=== PATIENT | male | born 1940 | race Caucasian/White ===

== ENCOUNTER → 2016-12-21 | Outpatient (CLI) | payer MEDICARE ==
[2016-12-21 08:23] LABS: CH 30.4; CHCM 33.3; HCT 43.8 % (39.0-53.0); HDW 2.25; HGB 14.5 gm/dL (13.0-17.5); MCH 30.4 pg (25.0-35.0); MCHC 33.2 g/dL (31.0-37.0); MCV 91.7 fL (80.0-100.0); Mean Platelet Volume 7.4; RBC 4.77 m/uL (4.30-5.90); RDW 13.6 % (11.5-15.5); WBC 5.3 k/uL (3.8-10.6)
[2016-12-21 08:41] LABS: AST 29 U/L (17-59); Anion Gap 13 mmol/L; Blood Urea Nitrogen 29 mg/dL (9-20); Carbon Dioxide 25 mmol/L (22-30); Chloride 102 mmol/L (98-107); Cholesterol 130 mg/dL (<200); Glucose 108 mg/dL (74-99); HDL Cholesterol 35 mg/dL (40-60); Non-African American GFR(MDRD) >60 (>60 ml/min/1.73 sqM); Potassium 4.3 mmol/L (3.5-5.1); Sodium 140 mmol/L (137-145); Triglycerides 74 mg/dL (<150)
[2016-12-21 13:05] LABS: Hemoglobin A1C 5.9 % (4.2-6.1)
== END | disposition home or self-care (01) ==
LOC: LABWHC1 07:56
PROVIDERS: ATTEND Internal Medicine
DX: E78.00 Pure hypercholesterolemia, unspecified (principal); E11.9 Type 2 diabetes mellitus without complications; I10 Essential (primary) hypertension
CPT/HCPCS: 36415; 80051; 80061; 82565; 82947; 83036; 84450; 84520; 85027

== ENCOUNTER → 2017-01-15 | Outpatient (CLI) | payer MEDICARE ==
[2017-01-15 16:18] LABS: Blood Urea Nitrogen 25 mg/dL (9-20); Non-African American GFR(MDRD) >60 (>60 ml/min/1.73 sqM)
--- NOTE | 2017-01-18 08:14 | CT ---
EXAMINATION TYPE: CT neck chest w con DATE OF EXAM: 01/15/2017 COMPARISON: CT neck December 04, 2014. CT chest December 15, 2011. PET CT April 16, 2012. HISTORY: History of skin cancer and hairy cell leukemia. CT DLP: 1102.00 mGycm. Automated Exposure Control for Dose Reduction was Utilized. TECHNIQUE: CT scan of the neck and thorax are performed following with IV Contrast, patient injected with 100 mL of Omnipaque 300. FINDINGS: NECK: Airway: There is heterogeneous multinodular thyroid redemonstrated, there appears to be interval more numerous and prominent nodules, for reference 1 cm nodule is seen on coronal image 57. Further inves tigation with ultrasound correlation is advised. Majority of left thyroid is surgically absent simila r prior. Parotid/submandibular glands: Left-sided carotid and submandibular glands are surgically absent. Carotid/Vascular Structures: Surrounding soft tissue along course of the left common carotid artery i ncluding bulb and proximal internal carotid artery likely reflects product of treatment change. Osseous Structures: There is prominent multilevel spurring in the cervical thoracic spine. Multilevel moderate disc space narrowing is seen most prominent C5-C6 and T2-T3 levels. Other: Majority of left neck is surgically resected as detailed above including left-sided muscles fr om parotid level posterior to the mandible down to the level of thyroid. No new suspicious greater than 1 cm lymph nodes are seen. CHEST: LUNGS: Left apical scarring is redemonstrated at site of surgical suture. There is additional more pa tchy scarring in the right middle lobe near diaphragm. There is elevated right hemidiaphragm redemons trated. No suspicious nodules or masses are present. No pleural effusion or pneumothorax is seen. Tra cheobronchial tree is patent. MEDIASTINUM: There are no greater than 1 cm hilar or mediastinal lymph nodes. No cardiomegaly or pe ricardial effusion is seen. Coronary artery calcification is present. OTHER: Cholecystectomy clips are seen. Multilevel spurring in the spine is present. IMPRESSION: Long segment postsurgical changes left neck with smaller changes left lung apex. No recur rent mass or adenopathy is seen to suggest neoplastic recurrence.
== END | disposition home or self-care (01) ==
LOC: RADCTMAIN 15:36
PROVIDERS: ATTEND Internal Medicine Hematology & Oncology
DX: C91.40 Hairy cell leukemia not having achieved remission (principal); Z88.5 Allergy status to narcotic agent; Z98.890 Other specified postprocedural states
CPT/HCPCS: 82565; 84520; 70491; 71260; 36415; Q9967

== ENCOUNTER → 2018-02-02 | Outpatient (CLI) | payer MEDICARE ==
--- NOTE | 2018-02-08 19:39 | HM ---
HOLTER MONITOR REPORT INDICATION: Chest discomfort. REFERRING PHYSICIAN: Dr. Phan. CLINICAL INFORMATION: The patient was monitored for 24 hours. The baseline rhythm appeared to be a sinus mechanism with a minimum heart rate of 51 beats per minute, max heart rate 112 beats per minute and average heart rate of 68 beats per minute. Ventricular ectopic events were represented in less than 1% of the total beats count and presented as PVC, bigeminy, triplet and couplet as well. Supraventricular ectopic events were present in less than 1% of the total beats count and presented as couplets and triplets as well as PACs. The patient did have multiple episodes of paroxysmal atrial tachycardia noted. No evidence of any sinus pause or sinus arrest. No evidence of any advanced AV block seen. The patient reported symptoms of fluttering in the chest and the symptoms were associated with normal sinus mechanism as well as with PVCs. CONCLUSION: 1. Sinus rhythm as a baseline mechanism. 2. Prior ventricular ectopic events. 3. Rare supraventricular ectopic events. 4. The patient did have multiple episodes of paroxysmal atrial tachycardia noted. 5. No evidence of any sinus pause or sinus arrest. 6. There is no evidence of any advanced atrioventricular block. 7. The patient reports symptoms of palpitations in the chest and fluttering in the chest and the symptoms were associated with normal sinus mechanism and premature ventricular contraction. MMODL / IJN: [id number] /
== END | disposition home or self-care (01) ==
LOC: RADECHMAIN 12:03
PROVIDERS: ATTEND Internal Medicine
DX: I49.3 Ventricular premature depolarization (principal); I47.1 Supraventricular tachycardia
CPT/HCPCS: 93225; 93226

== ENCOUNTER 2018-02-14 09:14 | Day surgery (SDC) | payer MEDICARE ==
[2018-02-09 14:55] VITALS: BMI 54.9
[~2018-02-14 09:14] MED LIST: LACTATED RINGERS 1,000 ML IV SCH; LIDOCAINE 1% 20 ML VIAL (10MG/ML) FOR IV START INTRADERMA PRN
[2018-02-14 09:55] VITALS: TEMP 98.6
[2018-02-14 10:00] LABS: Glucose,Whole Blood 88 mg/dL (75-99)
[2018-02-14] MEDS ORDERED: LIDOCAINE 1% INJ 10MG/ML (20 ML MDV) ONE ×2 (10:10→10:40)
[2018-02-14] MEDS ORDERED: PROPOFOL 10 MG/ML 20 ML VIAL IV ONE ×2 (10:10→10:40)
--- NOTE | 2018-02-14 11:09 | P.PCN ---
Date of Procedure: 02/14/18 Procedure(s) Performed: Procedure: Total colonoscopy. Preoperative diagnosis: Screening for neoplasia. Postoperative diagnosis: Sigmoid diverticulosis with no evidence of acute diverticulitis, strictures, polyps or cancer. Preparation: HalfLytely prep. Sedation: Was provided by anesthesia. Brief clinical history: The patient is a 77-year-old male who is scheduled for this evaluation for screening for neoplasia. The patient had a prior exam more than 5 years ago and he indicated history of polyps. He has no abdominal complaints, bleeding or anemia. Procedure: With the patient on his left lateral decubitus position and after informed consent and adequate sedation, the perianal area was inspected and it did not show any fissures or fistulas. There were no masses felt on digital rectal examination. The Olympus CFQ 160L video colonoscope was then inserted in the rectum in the usual fashion and advanced to the cecum. There were multiple diverticular orifices seen scattered in the sigmoid but I saw no evidence of acute diverticulitis or strictures. No polyps or tumors were seen. I retroflexed the endoscope in the rectum before the endoscope was withdrawn. Low-grade internal hemorrhoids were noted but there was no evidence of bleeding. The patient tolerated the procedure well. Plan: The patient was reassured. Discussed dietary measures. He will follow up with you as planned. Further plans can be made based on his course.
[2018-02-14 11:41] VITALS: BP 155/73; PULSE 68; RESP 18
== END 2018-02-14 11:44 | disposition home or self-care (01) ==
LOC: ORWHC2ENDO 09:14
DX: Z12.11 Encounter for screening for malignant neoplasm of colon (principal); K57.30 Diverticulosis of large intestine without perforation or abscess without bleeding; K64.8 Other hemorrhoids; Z86.010 Personal history of colon polyps; K21.9 Gastro-esophageal reflux disease without esophagitis; I10 Essential (primary) hypertension; E78.5 Hyperlipidemia, unspecified; Z79.84 Long term (current) use of oral hypoglycemic drugs; E11.9 Type 2 diabetes mellitus without complications; G45.3 Amaurosis fugax; Z86.73 Personal history of transient ischemic attack (TIA), and cerebral infarction without residual deficits; Z87.891 Personal history of nicotine dependence; Z79.02 Long term (current) use of antithrombotics/antiplatelets; Z79.899 Other long term (current) drug therapy; Z88.5 Allergy status to narcotic agent
CPT/HCPCS: J2001; J2704; G0105

== ENCOUNTER → 2019-12-08 | Outpatient (CLI) | payer MEDICARE ==
[2019-12-08 10:39] LABS: Basophils % (A) 0 %; Eosinophils # (A) 0.2 k/uL (0-0.7); Eosinophils % (A) 3 %; HCT 41.1 % (39.0-53.0); HGB 13.6 gm/dL (13.0-17.5); Lymphocytes # (A) 0.9 k/uL (1.0-4.8); Lymphocytes % (A) 15 %; MCH 29.9 pg (25.0-35.0); MCV 90.8 fL (80.0-100.0); Mean Platelet Volume 7.3; Monocytes # (A) 0.4 k/uL (0-1.0); Monocytes % (A) 6 %; Neutrophils # (A) 4.5 k/uL (1.3-7.7); Neutrophils % (A) 74 %; Platelet Count 141 k/uL (150-450); RBC 4.53 m/uL (4.30-5.90); RDW 12.9 % (11.5-15.5); WBC 6.1 k/uL (3.8-10.6)
[2019-12-08 16:08] LABS: African American GFR (CKD) 81.4 (60.0-200.0); Albumin 4.4 g/dL (3.80-4.90); Albumin/Globulin Ratio 2.59 (1.60-3.17); Anion Gap 7.8 mmol/L (4.00-12.00); Calcium 9.1 mg/dL (8.7-10.3); Carbon Dioxide 28.2 mmol/L (21.6-31.8); Chol/HDL Ratio 4.06; Globulin 1.7 g/dL (1.6-3.3); LDL Cholesterol,Calculated 77.6 mg/dL (0.0-131.0); Non-African American GFR(CKD) 70.3 (60.0-200.0); Potassium 4.6 mmol/L (3.5-5.5); Total Bilirubin 0.6 mg/dL (0.2-1.2); Total Protein 6.1 g/dL (6.2-8.2); VLDL Calculation 17.4 mg/dL (5.00-40.00)
[2019-12-08 17:30] LABS: Hemoglobin A1C 6.4 % (4.0-6.0)
== END | disposition home or self-care (01) ==
LOC: LABWHC1 08:25
PROVIDERS: ATTEND Internal Medicine
DX: I10 Essential (primary) hypertension (principal); E78.3 Hyperchylomicronemia; E11.9 Type 2 diabetes mellitus without complications
CPT/HCPCS: 36415; 80053; 80061; 83036; 84443; 85025

== ENCOUNTER 2024-03-09 08:21 | Emergency (ER) | payer MEDICARE ==
--- NOTE | 2024-03-09 09:04 | ED ---
Back Pain HPI - General Chief Complaint: Back Pain/Injury Stated Complaint: R hip pain Time Seen by Provider: 03/09/24 08:30 Source: patient, RN notes reviewed Limitations: no limitations - History of Present Illness Initial Comments: 83-year-old male presents to the emergency department with lower back pain radiating to right hip and leg for 1 week, previous history of lumbar spinal surgery, denies associated symptoms. Patient states that he has pain in his low back to right hip denies any bowel, bladder and cons retention no saddle anesthesias no abdominal complaints. He was seen in urgent care over a week ago. He states that the burning type pain. He is only taken acetaminophen for this pain. Reports no ameliorating factors, walking aggravates pain. MD Complaint: back pain -: week(s) Similar Symptoms Previously: Yes Place: home Radiation: right leg Severity: severe Severity scale (1-10): 10 Quality: burning Consistency: constant Improves With: none Worsens With: walking Context: unknown Associated Symptoms: denies other symptoms Treatments Prior to Arrival: NSAIDS, acetaminophen - Related Data Home Medications Medication Instructions Recorded Confirmed Aleve Arthritis 1 each PO BID 02/09/18 02/14/18 Clopidogrel [Plavix] 75 mg PO DAILY 02/09/18 02/14/18 Focus Eye Tabs 1 each PO DAILY 02/09/18 02/14/18 Omeprazole 20 mg PO DAILY 02/09/18 02/14/18 Pravastatin Sodium [Pravachol] 40 mg PO HS 02/09/18 02/14/18 amLODIPine BESYLATE/BENAZEPRIL 1 each PO DAILY 02/09/18 02/14/18 [amLODIPine BESYLATE/BENAZEPRIL 5-10 mg] metFORMIN HCL [Glucophage] 500 mg PO TID 02/09/18 02/14/18 Previous Rx's Medication Instructions Recorded Acetaminophen-Codeine 300-30mg 1 tab PO Q4H PRN #12 tablet 03/09/24 [Tylenol #3] predniSONE 50 mg PO DAILY #5 tab 03/09/24 Allergies Allergy/AdvReac Type Severity Reaction Status Date / Time fentanyl Allergy Itching Verified 03/09/24 08:27 AND HIVES Review of Systems ROS Statement: Those systems with pertinent positive or pertinent negative responses have been documented in the HPI. ROS Other: All systems not noted in ROS Statement are negative. 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 VISION OK AT THIS TIME. SKIN CANCER History of Any Multi-Drug Resistant Organisms: None Reported Past Surgical History: Cholecystectomy, Orthopedic Surgery Additional Past Surgical History / Comment(s): BONE SPURS REMOVED BILAT SHOULDERS. COLONOSCOPY. BILAT CATARACTS. 30 LYMPH NODES REMOVED FROM LEFT SIDE OF BODY, LT SIDED SALIVARY GLANDS, LT JUGULAR VEIN AND NERVE ENDINGS TO LEFT SIDE OF FACE REMOVED R/T CANCER Past Anesthesia/Blood Transfusion Reactions: No Reported Reaction Past Psychological History: No Psychological Hx Reported Past Alcohol Use History: None Reported Past Drug Use History: None Reported - Past Family History Brother(s) Family Medical History: Cancer Additional Family Medical History / Comment(s): COLON General Exam Limitations: no limitations General appearance: alert, in no apparent distress Head exam: Present: atraumatic, normocephalic, normal inspection Eye exam: Present: normal appearance, PERRL, EOMI. Absent: scleral icterus, conjunctival injection, periorbital swelling ENT exam: Present: normal exam, mucous membranes moist Neck exam: Present: other. Absent: normal inspection (Chronic Deformity), tenderness, meningismus, lymphadenopathy Respiratory exam: Present: normal lung sounds bilaterally. Absent: respiratory distress, wheezes, rales, rhonchi, stridor Cardiovascular Exam: Present: regular rate, normal rhythm, normal heart sounds. Absent: systolic murmur, diastolic murmur, rubs, gallop, clicks GI/Abdominal exam: Present: soft, normal bowel sounds. Absent: distended, tenderness, guarding, rebound, rigid exam: Present: normal inspection Extremities exam: Present: full ROM, tenderness Right Hip exam: Present: normal inspection, full ROM, tenderness Upper Leg exam: Present: normal inspection, full ROM, tenderness Back exam: Present: full ROM, tenderness, vertebral tenderness Neurological exam: Present: alert, oriented X3, CN II-XII intact Course Vital Signs 03/09/24 03/09/24 08:24 09:38 Temperature 97.7 F 98.1 F Pulse Rate 55 L 54 L Respiratory 16 18 Rate Blood Pressure 197/73 180/74 O2 Sat by Pulse 99 97 Oximetry Medical Decision Making - Medical Decision Making Was pt. sent in by a medical professional or institution (SONIA De Dios, GEOPHYSICAL PROSPECTING PERMIT AGENT, urgent care, hospital, or custodial...) When possible be specific @ -No Did you speak to anyone other than the patient for history (EMS, parent, family, police, friend...)? What history was obtained from this source @ -No Did you review nursing and triage notes (agree or disagree)? Why? @ -I reviewed and agree with nursing and triage notes Were old charts reviewed (outside hosp., previous admission, EMS record, old EKG, old radiological studies, urgent care reports/EKG's, custodial records)? Report findings @ -No old charts were reviewed Differential Diagnosis (chest pain, altered mental status, abdominal pain women, abdominal pain men, vaginal bleeding, weakness, fever, dyspnea, syncope, headache, dizziness, GI bleed, back pain, seizure, CVA, palpatations, mental health, musculoskeletal)? @ -Differential Back Pain: Strain, zoster, cauda equina syndrome, epidural abscess, vertebral osteomyelitis, discitis, fracture, subluxation, disc herniation, DJD, spinal stenosis, dissection, AAA, pancreatitis, peptic ulcer disease, pyelonephritis, kidney stone, this is not meant to be an all-inclusive list. EKG interpreted by me (3pts min.). @ -None X-rays interpreted by me (1pt min.). @ -@. Lumbar spine showing degenerative changes lower lumbar no osseous abnormality otherwise X-ray right hip and AP pelvis showing acetabular impingement syndrome, degenerative changes CT interpreted by me (1pt min.). @ -None done U/S interpreted by me (1pt. min.). @ -None done What testing was considered but not performed or refused? (CT, X-rays, U/S, labs)? Why? @ -None What meds were considered but not given or refused? Why? @ -None Did you discuss the management of the patient with other professionals (professionals i.e. SONIA De Dios, GEOPHYSICAL PROSPECTING PERMIT AGENT, lab, RT, psych nurse, adoption social worker, emergency registrar, teacher, maritime officer, case resource manager)? Give summary @ -No Was smoking cessation discussed for >3mins.? @ -No Was critical care preformed (if so, how long)? @ -No Were there social determinants of health that impacted care today? How? (Homelessness, low income, unemployed, alcoholism, drug addiction, transportation, low edu. Level, literacy, decrease access to med. care, fci, rehab)? @ -No Was there de-escalation of care discussed even if they declined (Discuss DNR or withdrawal of care, Hospice)? DNR status @ -No What co-morbidities impacted this encounter? (DM, HTN, Smoking, COPD, CAD, Cancer, CVA, ARF, Chemo, Hep., AIDS, mental health diagnosis, sleep apnea, morbid obesity)? @ -None Was patient admitted / discharged? Hospital course, mention meds given and route, prescriptions, significant lab abnormalities, going to OR and other pertinent info. @ -Discharge patient presented for hip pain, low back pain patient has no red flag symptoms. He has degenerative changes noted on x-ray he will follow-up with orthopedics. Patient provided analgesics, steroids. Return transfer discussed. Undiagnosed new problem with uncertain prognosis? @ -No Drug Therapy requiring intensive monitoring for toxicity (Heparin, Nitro, Insulin, Cardizem)? @ -No Were any procedures done? @ -No Diagnosis/symptom? @ -Lumbar radiculopathy, right hip pain Acute, or Chronic, or Acute on Chronic? @ -Acute Uncomplicated (without systemic symptoms) or Complicated (systemic symptoms)? @ -Uncomplicated Side effects of treatment? @ -No Exacerbation, Progression, or Severe Exacerbation? @ -No Poses a threat to life or bodily function? How? (Chest pain, [place], [place], pneumonia, PE, COPD, DKA, ARF, appy, cholecystitis, CVA, Diverticulitis, Homicidal, Suicidal, threat to staff... and all critical care pts) @ -No Disposition Clinical Impression: Lumbar radiculopathy, acute, Right hip pain Disposition: HOME SELF-CARE Condition: Stable Instructions (If sedation given, give patient instructions): Lumbar Radiculopathy (ED) Additional Instructions: Please return to the Emergency Department if symptoms worsen or any other concerns. Prescriptions: predniSONE 50 mg PO DAILY #5 tab Acetaminophen-Codeine 300-30mg [Tylenol #3] 1 tab PO Q4H PRN #12 tablet PRN Reason: pain Is patient prescribed a controlled substance at d/c from ED?: Yes When asked, does pt state using other controlled substances?: No If prescribed controlled substance>3 days was MAPS reviewed?: Prescribed <3 Days If opioid is for acute pain is fill amount 7 days or less?: Yes If Rx opioid, was Start Talking consent form obtained?: Yes Referrals: Neva Schultz MD [Primary Care Provider] - 1-2 days Lisa Ramirez DO [Doctor of Osteopathic Medicine] - 1-2 days Time of Disposition: 10:21
[2024-03-09] MEDS: KETOROLAC 15 MG/ML 1 ML VIAL IM STA (09:07)
[2024-03-09 09:38] VITALS: RESP 18; TEMP 98.1
--- NOTE | 2024-03-09 09:39 | XR ---
EXAM TYPE: LUMBAR SPINE X RAY SERIES COMPARISON: NONE HISTORY: Pain TECHNIQUE: 3 views are submitted. FINDINGS: Multilevel hypertrophic and degenerative changes spine with multilevel facet arthropathy. Vascular ca lcifications. Generalized demineralization. Sclerotic density right iliac bone likely related to bone island. Surgical clips incidentally noted. Nonspecific sclerosis L2 vertebral body. IMPRESSION: 1. Multilevel degenerative disc disease most marked at L5-S1. Severe facet arthropathy L3-S1 foramina l encroachment L4-5 and L5-S1 suspected. 2. Nonspecific sclerosis involving the L2 vertebral body. Correlate with PSA.
--- NOTE | 2024-03-09 09:41 | XR ---
EXAMINATION TYPE: XR Hip RT and AP Pelvis DATE OF EXAM: 03/09/2024 COMPARISON: NONE HISTORY: A TECHNIQUE: A single AP view of the pelvis is obtained. Two views of the right hip are obtained. FINDINGS: Degenerative changes in the spine. Vascular calcifications. Mild generalized demineralizati on. Nonspecific sclerotic lesion right iliac bone possibly bone island. Moderate hypertrophic bilater al hip arthropathy. Correlate for femoral acetabular impingement. No definite acute fracture or dislo cation. SI joint arthropathy. IMPRESSION: 1. Moderate hypertrophic arthropathy correlate for femoral acetabular impingement. 2. No definite acute fracture. If there is difficulty with weightbearing and history of trauma then c onsider CT scan.
[2024-03-09] MEDS: HYDROcodone/APAP 5-325MG 1 EACH TAB PO STA (10:33)
[2024-03-09 10:57] VITALS: BP 147/67; PULSE 59
== END 2024-03-09 10:57 | disposition home or self-care (01) ==
LOC: EC 08:21
CPT/HCPCS: 72100; 73502; 96372; 99283

== ENCOUNTER → 2024-03-24 | Outpatient (CLI) | payer MEDICARE ==
--- NOTE | 2024-03-24 15:53 | US ---
EXAMINATION TYPE: US carotid duplex BILAT DATE OF EXAM: 03/24/2024 COMPARISON: NONE CLINICAL INDICATION: Male, 83 years old with history of I65.23 CAROTID STENOSIS; stenosis TECHNIQUE: Carotid duplex ultrasound examination. Indirect Doppler criteria was utilized. FINDINGS: EXAM MEASUREMENTS: RIGHT: Peak Systolic Velocity (PSV) cm/sec ----- Right CCA: 108 ----- Right ICA: 142 ----- Right ECA: 77.2 ICA/CCA ratio: 1.3 RIGHT: End Diastole cm/sec ----- Right CCA: 16 ----- Right ICA: 21.7 ----- Right ECA: 1.5 LEFT: Peak Systolic Velocity (PSV) cm/sec ----- Left CCA: 88.6 ----- Left ICA: 82.8 ----- Left ECA: 63.8 ICA/CCA ratio: 0.9 LEFT: End Diastole cm/sec ----- Left CCA: 17.4 ----- Left ICA: 14.9 ----- Left ECA: 6.6 VERTEBRALS (direction of flow): Right Vertebral: Antegrade Left Vertebral: Antegrade Rhythm: Normal PEDIATRIC GENETICIST NOTES: exam limited due to tortuous vessels and very high bifurcation with shadowing from mandible, significant soft plaque noted throughout. Proximal ICA has an elevated velocity of 142 tho ugh does not display a stenotic waveform IMPRESSION: Atheromatous plaquing bilateral carotid by patient's. This is moderate stenosis between 50 and 69%, r ight internal carotid artery. Criteria for Assigning % of Stenosis / Diameter reduction (Estimation based on the indirect measurements of the internal carotid artery velocities (ICA PSV). 1. Normal (no stenosis)=ICA PSV < 125 cm/s: ratio < 2.0: ICA EDV<40 cm/s. 2. Less than 50% stenosis=ICA PSV < 125 cm/s: ratio < 2.0: ICA EDV<40 cm/s. 3. 50 to 69% stenosis=ICA PSV of 125 to 230 cm/s: ration 2.0 ? 4.0: ICA EDV 40-100 cm/s. 4. Greater than 70% stenosis to near occlusion= ICA PSV > 230 cm/s: ratio > 4.0: ICA EDV > 100 cm/s. 5. Near occlusion= ICA PSV velocities may be low or undetectable: variable ratio and ICA EDV. 6. Total occlusion=unable to detect flow. [facility], , 03/24/2024 3:51 PM
== END | disposition home or self-care (01) ==
LOC: RADUSWWP 14:33
PROVIDERS: ATTEND Internal Medicine
DX: I65.23 Occlusion and stenosis of bilateral carotid arteries
CPT/HCPCS: 93880

== ENCOUNTER → 2024-04-03 | Outpatient (CLI) | payer MEDICARE ==
[2024-04-03 15:52] LABS: African American GFR (CKD) 71 (>60 ml/min/1.73 sqM); Blood Urea Nitrogen 32 mg/dL (9-20); Non-African American GFR(CKD) 62 (>60 ml/min/1.73 sqM)
--- NOTE | 2024-04-03 17:23 | CT ---
EXAMINATION TYPE: CT noncontrast brain. CT angiogram brain. CT angiogram neck. CT DLP: 1326.7 mGycm, Automated exposure control for dose reduction was used. DATE OF EXAM: 04/03/2024 4:47 PM COMPARISON: 01/15/2017. 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 TECHNIQUE: Noncontrast CT brain was performed followed by CT angiogram head and neck. Axially acquired helical C T angiogram of the head and neck was obtained with contrast. Axial images are supplemented with 3D re constructions and MIP images which were post-processed at an independent workstation. NASCET criteri a used. Contrast used:65 ml mL of Isovue 370 with IV Contrast, Oral contrast used: None. FINDINGS: Brain: Extra-axial spaces: No abnormal extra-axial fluid collections. Ventricular system: Dilatation in proportion to cerebral atrophy. Cerebral parenchyma: Cerebral atrophy. No acute intraparenchymal hemorrhage or mass effect. The king -white junction is well differentiated. Scattered hypoattenuating areas are seen within the white mat ter. Cerebellum: Unremarkable. Mass effect: No evidence of midline shift. Intracranial vasculature: Atherosclerotic calcifications of the intracranial vessels. Soft tissues: Normal. Calvarium/osseous structures: No depressed skull fracture. Paranasal sinuses and mastoid air cells: Mild scattered paranasal sinus disease. Visualized orbits: Bilateral aphakia CTA HEAD: No evidence of acute intracranial hemorrhage, mass effect, or midline shift. The ventricles, sulci, a nd cisterns are unremarkable. The visualized portions of the internal carotid arteries, middle cerebral arteries, anterior cerebral arteries, and posterior cerebral arteries are patent. The basilar and vertebral arteries are patent. CTA NECK: Right Carotid System: The common carotid and external carotid arteries are patent. There is less than 25% stenosis at the carotid bifurcation secondary to calcified/noncalcified plaque. The rest of the internal carotid artery is patent. Left Carotid System: The common carotid and external carotid arteries are patent. The carotid bifurcation is patent. There is approximately 40% stenosis of the superior portion of the left internal carotid artery bifurcatio n series 3 image 35 Vertebral arteries are patent without evidence hemodynamically significant stenosis. There is a three-vessel aortic arch. The origins of the great vessels are patent. No evidence of hemo dynamically significant stenosis. Upper thorax: Apical scarring/consolidation changes in the left lung apex. Right thyroid gland nodule s measured to 15 mm. IMPRESSION: 1. 40% stenosis of the left internal carotid artery past its bifurcation. No significant stenosis of the right carotid system. New Linear filling defects possibly secondary to atherosclerotic plaque ve rsus carotid web 2. No evidence of intracranial high-grade stenosis or intracranial aneurysm. 3. No acute intracranial process. [facility], , 04/03/2024 5:21 PM
== END | disposition home or self-care (01) ==
LOC: RADCTMAIN 14:53
PROVIDERS: ATTEND Internal Medicine
DX: I65.23 Occlusion and stenosis of bilateral carotid arteries (principal)
CPT/HCPCS: 36415; 70496; 70498; 82565; 84520

== ENCOUNTER → 2024-09-01 | Outpatient (CLI) | payer MEDICARE ==
[~2024-09-01] MED LIST changes: -LACTATED RINGERS 1,000 ML IV SCH; -LIDOCAINE 1% 20 ML VIAL (10MG/ML) FOR IV START INTRADERMA PRN; +REGADENOSON 0.4 MG/5 ML SYRINGE IV PRN
--- NOTE | 2024-09-01 13:29 | CA ---
Lexiscan Nuclear Stress Test Report Name: Jose Eduardo Doyle Exam Date: 09/01/2024 12:22 Exam Location: [place] Stress Ht (in): 69 Wt (lb): 153 BSA: 1.84 Ordering Phys: Neva Schultz MD Referring Phys: NEIL Technologist: Lul Palm Age: 83 Gender: M : 1940 Procedure CPT: Indications: I25.10 coronary arteriosclerosis ICD-10 Codes: Patient History: Medications: METFORMIN, PLAVIX, METOPROLOL, PRAVASTATIN Meds past 24 hrs: Pretest Chest Pain: STRESS TEST Lexiscan Protocol Exercise Duration (min:sec): 01:[address] Depressions (mm): Angina Score: Flood Score: Resting HR (bpm): 60 Peak HR (bpm): 75 Resting BP (mmHg): 150 / 59 Peak BP (mmHg): 173 / 54 MPHR: 135 Target HR: 115 % MPHR: 56 METS: 1.0 Total Dose: Peak Dose: Atropine: Double Product: 34395 BP Response: Stress Termination: INFUSION COMPLETE Stress Symptoms: NO SYMPTOMS Stress Summary: ECG ANALYSIS Resting ECG: Stress ECG: CONCLUSIONS RESTING EKG: [Normal sinus rhythm, normal EKG] Patient recieved IV infusion of Lexiscan 0.4mg and at peak infusion. Patient did not experience any significant symptoms with Lexiscan infusion. Patient had normal hemodynamic and clinical response to Lexiscan infusion. STRESS EKG showed: [No significant ST-T wave changes diagnostic for ischemia by ST segment analysis] ARRYTHMIAS: [No ectopic rhythms or sustained arrythmias] CONCLUSION: 1. Normal hemodynamic and clinical response to Lexiscan infusion. 2. Non-ischemic EKG response to lexiscan infusion Please refer to the nuclear imaging portion of this stress test for complete interpretation of the study. Dr Yoel Hoyos (Electronically Signed) Final Date: 01 September 2024 13:29
--- NOTE | 2024-09-01 13:58 | NM ---
EXAMINATION TYPE: NM stress lexiscan cardiolite DATE OF EXAM: 09/01/2024 COMPARISON: NONE CLINICAL INDICATION: Male, 83 years old with history of I25.10 Coronary arteriosclerosis; History of HTN, DM, tobacco use, and hypercholesteremia. TECHNIQUE: After the intravenous administration of 10.0 mCi Tc 99m Sestamibi - Cardiolite resting SP ECT images acquired 45 minutes post injection. The patient received 0.4mg Lexiscan, 24.8 mCi Tc 99m Sestamibi - Stress images obtained [address] injection FINDINGS: Review of stress and rest SPECT images demonstrates no distinct perfusion abnormality. Gated analysi s shows normal wall motion with an estimated left ventricular ejection fraction of 66 %. IMPRESSION: No scintigraphic evidence for reversible ischemia. [facility], , 09/01/2024 1:56 PM
--- NOTE | 2024-09-02 12:27 | CA ---
Transthoracic Echo Report Name: Jose Eduardo Doyle Age: 83 Gender: M : 1940 Exam Date: 09/01/2024 12:39 Exam Location: [facility] Ht (in): 69 Wt (lb): 150 Ordering Physician: Neva Schultz MD Attending/Referring Phys: Rigging Worker Kaykay Torres RDCS Procedure CPT: Indications: I25.10 coronary arteriosclerosis Cardiac Hx: Technical Quality: Fair Contrast 1: Total Dose (mL): Contrast 2: Total Dose (mL): MEASUREMENTS (Male / Female) Normal Values 2D ECHO LV Diastolic Diameter PLAX 4.1 cm 4.2 - 5.9 / 3.9 - 5.3 cm LV Systolic Diameter PLAX 2.8 cm IVS Diastolic Thickness 1.4 cm 0.6 - 1.0 / 0.6 - 0.9 cm LVPW Diastolic Thickness 1.2 cm 0.6 - 1.0 / 0.6 - 0.9 cm LV Relative Wall Thickness 0.7 RV Internal Dim ED PLAX 2.2 cm LA Systolic Diameter LX 3.7 cm 3.0 - 4.0 / 2.7 - 3.8 cm LV Diastolic Volume MOD BP 54.6 cm??? 67 - 155 / 56 - 104 cm??? LV Systolic Volume MOD BP 15.6 cm??? 22 - 58 / 19 - 49 cm??? LV Ejection Fraction MOD BP 71.5 % >= 55 % LV Cardiac Index MOD BP 1867.9 cm???/min???m??? LV Diastolic Volume MOD 4C 50.5 cm??? LV Systolic Volume MOD 4C 15.6 cm??? LV Ejection Fraction MOD 4C 69.1 % LV Cardiac Index MOD 4C 1667.6 cm???/min???m??? LV Diastolic Length 4C 6.9 cm LV Systolic Length 4C 6.3 cm LV Diastolic Volume MOD 2C 52.2 cm??? LV Systolic Volume MOD 2C 15.8 cm??? LV Ejection Fraction MOD 2C 69.6 % LV Cardiac Index MOD 2C 1738.5 cm???/min???m??? LV Diastolic Length 2C 8.0 cm LV Systolic Length 2C 6.3 cm LA Volume 39.5 cm??? 18 - 58 / 22 - 52 cm??? LA Volume Index 21.7 cm???/m??? 16 - 28 cm???/m??? M-MODE Aortic Root Diameter MM 3.4 cm LA Systolic Diameter MM 3.0 cm LA Ao Ratio MM 0.9 AV Cusp Separation MM 2.0 cm DOPPLER AI Peak Velocity 228.4 cm/s AI Peak Gradient 20.9 mmHg AI Pressure Half Time 909.0 ms MV Area PHT 3.5 cm??? Mitral E Point Velocity 90.8 cm/s Mitral A Point Velocity 98.3 cm/s Mitral E to A Ratio 0.9 MV Deceleration Time 214.4 ms TR Peak Velocity 292.2 cm/s TR Peak Gradient 34.2 mmHg Right Ventricular Systolic Press 39.1 mmHg FINDINGS Left Ventricle Left ventricular ejection fraction is estimated at 55-60 %. Moderately increased septal wall thickness. Normal left ventricular systolic function with no obvious regional wall motion abnormalities. Left ventricular cavity size normal. Right Ventricle Normal right ventricular size and function. Mild pulmonary hypertension. Right Atrium Normal right atrial size. Left Atrium Normal left atrial size. Mitral Valve Structurally normal mitral valve. Moderate mitral regurgitation. No mitral stenosis. Aortic Valve Trileaflet aortic valve. Mild aortic regurgitation. No aortic stenosis. Tricuspid Valve Structurally normal tricuspid valve. Mild tricuspid regurgitation. No tricuspid stenosis. Pulmonic Valve Structurally normal pulmonic valve. Mild pulmonic regurgitation. No pulmonic stenosis. Pericardium No pericardial or pleural effusion. Aorta Normal size aortic root and proximal ascending aorta. CONCLUSIONS Ejection fraction 55-60% Moderate increased left injury wall thickness Moderate mitral regurgitation Mild tricuspid regurgitation No pericardial effusion Previewed by: Dr. Coleman Velasco DO (Electronically Signed) Final Date: 02 September 2024 12:27
== END | disposition home or self-care (01) ==
LOC: RADNMMAIN 09:28
PROVIDERS: ATTEND Internal Medicine
DX: I25.10 Atherosclerotic heart disease of native coronary artery without angina pectoris (principal); I10 Essential (primary) hypertension; E11.9 Type 2 diabetes mellitus without complications; E78.00 Pure hypercholesterolemia, unspecified
CPT/HCPCS: 93017; 93306; 78452; A9500; J2785